=== PATIENT | female | born 1990 | race Caucasian/White ===

== ENCOUNTER 2016-12-11 02:46 | Emergency (ER) | payer OTHER ==
[~2016-12-11] VITALS: Ht 167.6 cm; Wt 51.7 kg
[2016-12-11] MEDS ORDERED: KETOROLAC 30 MG/1 ML IVPush ONE (03:30)
[2016-12-11] MEDS ORDERED: MORPHINE SULFATE 4 MG/ML, 1ML IVPush PRN (03:30)
[2016-12-11] MEDS ORDERED: SODIUM CHLORIDE 0.9% 1,000ML IVBOLUS ONE (03:30)
[2016-12-11] MEDS ORDERED: PROCHLORPERAZINE 5 MG/ML, 2ML IVPush ONE (03:30)
[2016-12-11] MEDS ORDERED: DIPHENHYDRAMINE 50 MG/ML, 1ML IVPush ONE (03:30)
[2016-12-11] MEDS ORDERED: SODIUM CHLORIDE FLUSH 10ML SYR IVF ONE (03:30)
[2016-12-11] MEDS ORDERED: PROCHLORPERAZINE 5 MG/ML, 2ML ONE (03:35)
[2016-12-11] MEDS ORDERED: KETOROLAC 30 MG/1 ML ONE (03:35)
[2016-12-11] MEDS ORDERED: DIPHENHYDRAMINE 50 MG/ML, 1ML ONE (03:35)
[2016-12-11 04:55] VITALS: BP 104/53
== END 2016-12-11 05:14 | disposition home or self-care (01) ==
LOC: ED 04:56
DX: G43.019 Migraine without aura, intractable, without status migrainosus (principal); F17.200 Nicotine dependence, unspecified, uncomplicated
CPT/HCPCS: 96361; 96374; 96375; 99284; J0780; J1200; J1885; J7030

== ENCOUNTER 2017-01-11 15:21 | Emergency (ER) | payer OTHER ==
[~2017-01-11] VITALS: Ht 167.6 cm; Wt 50.8 kg
[2017-01-11 16:33] LABS: BLOOD UREA NITROGEN 11 mg/dL (7-18)
[2017-01-11 16:33] LABS: HEMATOCRIT 46.6 % (34.6-47.8); HEMOGLOBIN 15.8 g/dL (11.7-16.4); WHITE BLOOD COUNT 19.1 x10^3/uL (3.4-10)
[2017-01-11] MEDS ORDERED: morphine SULFATE 10 MG/ML, 1ML ONE (17:45)
[2017-01-11] MEDS ORDERED: ONDANSETRON 2MG/ML, 2ML ONE (17:45)
[2017-01-11] MEDS ORDERED: morphine SULFATE 10 MG/ML, 1ML IVPush ONE ×2 (18:00→20:00)
[2017-01-11] MEDS ORDERED: ONDANSETRON 2MG/ML, 2ML IVPush ONE (18:00)
[2017-01-11] MEDS ORDERED: SODIUM CHLORIDE 0.9% 1,000ML IVBOLUS ONE (18:00)
[2017-01-11] MEDS ORDERED: CEFTRIAXONE PMX 1GM/50ML 50 ML IV ONE (18:30)
[2017-01-11] MEDS ORDERED: CEFTRIAXONE PMX 1GM/50ML 50 ML ONE (19:22)
[2017-01-11] MEDS ORDERED: MORPHINE SULFATE 4 MG/ML, 1ML ONE (20:02)
[2017-01-11 20:19] VITALS: BP 148/65
== END 2017-01-11 20:22 | disposition home or self-care (01) ==
LOC: ED 17:52
DX: N73.9 Female pelvic inflammatory disease, unspecified (principal); N30.01 Acute cystitis with hematuria; G43.909 Migraine, unspecified, not intractable, without status migrainosus
CPT/HCPCS: 36415; 80048; 81001; 82040; 84703; 85025; 87086; 87210; 87491; 87591; 87808; 96361; 96365; 96375; 96376; 99284; J0696; J2270; J2405; J7030

== ENCOUNTER 2017-02-06 13:58 | Emergency (ER) | payer OTHER ==
[~2017-02-06] VITALS: Ht 167.6 cm; Wt 51.0 kg
[2017-02-06] MEDS ORDERED: KETOROLAC 30 MG/1 ML IVPush ONE (15:00)
[2017-02-06] MEDS ORDERED: SODIUM CHLORIDE 0.9% 1,000ML IVBOLUS ONE (15:00)
[2017-02-06] MEDS ORDERED: METOCLOPRAMIDE 5 MG/ML, 2ML IVPush ONE (15:00)
[2017-02-06] MEDS ORDERED: METOCLOPRAMIDE 5 MG/ML, 2ML ONE (15:05)
[2017-02-06] MEDS ORDERED: KETOROLAC 30 MG/1 ML ONE (15:05)
[2017-02-06 16:17] VITALS: BP 105/71
== END 2017-02-06 16:19 | disposition home or self-care (01) ==
LOC: ED 14:34
DX: G43.909 Migraine, unspecified, not intractable, without status migrainosus (principal); F17.210 Nicotine dependence, cigarettes, uncomplicated
CPT/HCPCS: 96361; 96374; 96375; 99285; J1885; J2765; J7030

== ENCOUNTER 2017-04-17 12:38 | Emergency (ER) | payer OTHER ==
[~2017-04-17] VITALS: Ht 167.6 cm; Wt 51.1 kg
[2017-04-17 12:54] VITALS: BP 103/65
[2017-04-17] MEDS ORDERED: KETOROLAC 30 MG/1 ML ONE (13:25)
[2017-04-17] MEDS ORDERED: DEXAMETHASONE 4 MG/ML, 5ML ONE (13:25)
[2017-04-17] MEDS ORDERED: ACETAMINOPHEN 325 MG TABLET ONE (13:25)
[2017-04-17] MEDS ORDERED: PROCHLORPERAZINE 5 MG/ML, 2ML ONE (13:25)
[2017-04-17] MEDS ORDERED: SUMATRIPTAN 6MG/0.5ML SQ ONE ×2 (13:25→13:30)
[2017-04-17] MEDS ORDERED: SODIUM CHLORIDE 0.9% 1,000ML IVBOLUS ONE (13:30)
[2017-04-17] MEDS ORDERED: PROCHLORPERAZINE 5 MG/ML, 2ML IVPush ONE (13:30)
[2017-04-17] MEDS ORDERED: DEXAMETHASONE 4 MG/ML, 1ML IVPush ONE (13:30)
[2017-04-17] MEDS ORDERED: ACETAMINOPHEN 325 MG TABLET PO ONE (13:30)
[2017-04-17] MEDS ORDERED: hydrOXYzine 50 MG/ML IM ONE (13:30)
[2017-04-17] MEDS ORDERED: KETOROLAC 30 MG/1 ML IVPush ONE (13:30)
[2017-04-17] MEDS ORDERED: SODIUM CHLORIDE FLUSH 10ML SYR IVF ONE (13:30)
[2017-04-17] MEDS ORDERED: hydrOXYzine 25 MG/ML IM ONE (14:30)
== END 2017-04-17 15:21 | disposition home or self-care (01) ==
LOC: ED 13:27
DX: G43.001 Migraine without aura, not intractable, with status migrainosus (principal)
CPT/HCPCS: 96361; 96372; 96374; 96375; 99284; J0780; J1100; J1885; J3030; J7030

== ENCOUNTER 2018-02-22 05:35 | Emergency (ER) | payer OTHER ==
[~2018-02-22] VITALS: Ht 167.6 cm; Wt 48.0 kg
[2018-02-22] MEDS ORDERED: SODIUM CHLORIDE 0.9% 1,000ML IVBOLUS ONE (06:00)
[2018-02-22] MEDS ORDERED: KETOROLAC 30 MG/1 ML IVPush ONE (06:00)
[2018-02-22] MEDS ORDERED: PROCHLORPERAZINE 5 MG/ML, 2ML IVPush ONE (06:00)
[2018-02-22] MEDS ORDERED: PROCHLORPERAZINE 5 MG/ML, 2ML ONE (06:37)
[2018-02-22] MEDS ORDERED: KETOROLAC 30 MG/1 ML ONE (06:37)
[2018-02-22 06:39] LABS: BASOPHILS # (AUTO) 0.06 x10^3/uL (0-0.1); BASOPHILS % (AUTO) 0 % (0-1); EOSINOPHILS # (AUTO) 0.21 x10^3/uL (0-0.4); EOSINOPHILS % (AUTO) 2 % (1-7); LYMPHOCYTES # (AUTO) 1.46 x10^3/uL (1-3.4); LYMPHOCYTES % (AUTO) 11 % (22-44); MD NO; MEAN CORPUSCULAR HEMOGLOBIN 33.1 pg (27.0-34.8); MEAN CORPUSCULAR HGB CONC 33.8 g/dL (32.4-35.8); MEAN CORPUSCULAR VOLUME 97.8 fL (80-100); MEAN PLATELET VOLUME 8.3 fL (7.4-10.4); MONOCYTES # (AUTO) 0.43 x10^3/uL (0.2-0.8); MONOCYTES % (AUTO) 3 % (2-9); NEUTROPHILS # (AUTO) 11.72 x10^3/uL (1.8-6.8); NEUTROPHILS % (AUTO) 85 % (42-75); PLATELET COUNT 251 x10^3/uL (130-400); RED BLOOD COUNT 4.27 x10^6/uL (3.82-5.3); RED CELL DISTRIBUTION WIDTH 13.3 % (9.6-15.2)
[2018-02-22 06:49] VITALS: BP 137/81
[2018-02-22 06:51] LABS: ANION GAP 7 mmol/L (5-15); CALCIUM 8.4 mg/dL (8.5-10.1); CHLORIDE 109 mmol/L (98-107); CREATININE 0.71 mg/dL (0.55-1.02)
[2018-02-22] MEDS ORDERED: LORazepam 2 MG/ML, 1ML ONE (07:26)
[2018-02-22] MEDS ORDERED: LORazepam 2 MG/ML, 1ML IVPush ONE (07:30)
== END 2018-02-22 08:04 | disposition home or self-care (01) ==
LOC: ED 08:02
DX: G89.29 Other chronic pain (principal); M54.2 Cervicalgia; R11.2 Nausea with vomiting, unspecified; E86.0 Dehydration; G43.909 Migraine, unspecified, not intractable, without status migrainosus; F17.200 Nicotine dependence, unspecified, uncomplicated
CPT/HCPCS: 36415; 80048; 85025; 96361; 96374; 96375; 99285; J0780; J1885; J2060; J7030

== ENCOUNTER 2019-01-03 08:19 | Inpatient (IN) | payer BC, MEDICAID ==
[~2019-01-03] VITALS: Ht 167.6 cm; Wt 61.0 kg
[2019-01-03] MEDS ORDERED: NEWBORN KIT ONE (22:00)
[2019-01-03] MEDS ORDERED: MISOPROSTOL 25 MCG TABLET ONE (22:05)
[2019-01-03] MEDS ORDERED: LIDOCAINE 1%, 20ML ONE (22:05)
[2019-01-03] MEDS ORDERED: MISOPROSTOL 200 MCG TABLET ONE (22:06)
[2019-01-03] MEDS ORDERED: OXYTOCIN 30U/ 0.9% NaCL 500ML 500 ML ONE (22:06)
[2019-01-03] MEDS ORDERED: OXYTOCIN 30U/ 0.9% NaCL 500ML 500 ML IV ONE (22:08)
[2019-01-03] MEDS: D5%-LACTATED RINGERS 1,000 ML IV SCH (22:08)
[2019-01-03 22:10] VITALS: BP 113/71
[2019-01-03] MEDS ORDERED: SODIUM CITRATE/CITRIC ACID 30 ML UDC PO PRN (22:30)
[2019-01-03] MEDS ORDERED: METOCLOPRAMIDE 5 MG/ML, 2ML IVPush PRN (22:30)
[2019-01-03] MEDS ORDERED: ONDANSETRON 2MG/ML, 2ML IVPush PRN (22:30)
[2019-01-03] MEDS ORDERED: CALCIUM CARBONATE 500 MG TAB.CHEW PO PRN (22:30)
[2019-01-03] MEDS ORDERED: TERBUTALINE 1 MG/ML, 1ML SQ PRN (22:30)
[2019-01-03] MEDS ORDERED: MISOPROSTOL 25 MCG TABLET VG PRN (22:30)
[2019-01-03] MEDS ORDERED: FENTANYL PF 100 MCG/2ML IV PRN (22:30)
[2019-01-03] MEDS ORDERED: TERBUTALINE 1 MG/ML, 1ML IVPush PRN (22:30)
[2019-01-03 22:39] LABS: BASOPHILS # (AUTO) 0.06 x10^3/uL (0-0.1); BASOPHILS % (AUTO) 1 % (0-1); EOSINOPHILS # (AUTO) 0.24 x10^3/uL (0-0.4); EOSINOPHILS % (AUTO) 2 % (1-7); LYMPHOCYTES % (AUTO) 18 % (22-44); MD NO; MEAN CORPUSCULAR HEMOGLOBIN 32.9 pg (27.0-34.8); MEAN CORPUSCULAR HGB CONC 33.2 g/dL (32.4-35.8); MEAN CORPUSCULAR VOLUME 99.2 fL (80-100); MONOCYTES # (AUTO) 0.78 x10^3/uL (0.2-0.8); MONOCYTES % (AUTO) 6 % (2-9); NEUTROPHILS # (AUTO) 9.69 x10^3/uL (1.8-6.8); NEUTROPHILS % (AUTO) 74 % (42-75); PLATELET COUNT 248 x10^3/uL (130-400); RED CELL DISTRIBUTION WIDTH 13.2 % (9.6-15.2)
[2019-01-04] MEDS ORDERED: FENTANYL/BUPIV./NS/PF 250 ML EPIDCONT SCH (03:05)
[2019-01-04] MEDS ORDERED: FENTANYL PF 500 MCG, BUPIVACAINE/PF 0.5%, 30ML 62.5 ML in SODIUM CHLORIDE 0.9% 177.5 ML EPIDCONT SCH (03:30)
[2019-01-04] MEDS: LACTATED RINGERS 1,000 ML IV SCH ×4 (03:31→22:08)
[2019-01-04] MEDS ORDERED: FENTANYL PF 100 MCG/2ML ONE ×2 (16:06→19:46)
[2019-01-04] MEDS: FENTANYL PF 100 MCG/2ML IVPush PRN ×2 (17:12→19:50)
[2019-01-04] MEDS ORDERED: BUPIVACAINE 0.25% ONE ×2 (20:17→20:25)
[2019-01-04] MEDS ORDERED: FENTANYL/BUPIV./NS/PF 250 ML EPIDCONT ONE (20:25)
[2019-01-05] MEDS: D5%-LACTATED RINGERS 1,000 ML IV SCH (00:50)
[2019-01-05] MEDS ORDERED: OXYTOCIN 30U/ 0.9% NaCL 500ML 500 ML IV SCH (03:22)
[2019-01-05] MEDS ORDERED: ACETAMINOPHEN 325 MG TABLET PO PRN ×2 (03:30)
[2019-01-05] MEDS ORDERED: CALCIUM CARBONATE 500 MG TAB.CHEW PO PRN (03:30)
[2019-01-05] MEDS ORDERED: MISOPROSTOL 200 MCG TABLET PR PRN (03:30)
[2019-01-05] MEDS ORDERED: ONDANSETRON 2MG/ML, 2ML IV PRN (03:30)
[2019-01-05] MEDS ORDERED: BISACODYL 10 MG SUPP PR PRN (03:30)
[2019-01-05] MEDS ORDERED: SIMETHICONE 80 MG CHEW TAB PO PRN (03:30)
[2019-01-05] MEDS ORDERED: OXYTOCIN 30U/ 0.9% NaCL 500ML 500 ML ONE (04:10)
[2019-01-05] MEDS: OXYTOCIN 30U/ 0.9% NaCL 500ML 500 ML IV SCH ×3 (04:13→23:22)
[2019-01-05] MEDS ORDERED: IBUPROFEN 600 MG TABLET ONE (04:22)
[2019-01-05] MEDS: IBUPROFEN 600 MG TABLET PO PRN ×4 (04:24→23:57)
[2019-01-05] MEDS: LACTATED RINGERS 1,000 ML IV SCH ×3 (06:08→22:08)
[2019-01-05 07:45] VITALS: BP 125/81
[2019-01-05] MEDS: PRENATAL VIT/IRON/FA 1 EACH TABLET PO SCH (09:32)
[2019-01-05] MEDS: DOCUSATE 100 MG CAPSULE PO PRN ×2 (09:32→23:57)
[2019-01-05] MEDS: HYDROcodone/APAP 5/325 TABLET PO PRN ×4 (09:34→23:57)
[2019-01-05 11:10] LABS: MEAN CORPUSCULAR HEMOGLOBIN 32.8 pg (27.0-34.8); MEAN CORPUSCULAR HGB CONC 32.9 g/dL (32.4-35.8); MEAN CORPUSCULAR VOLUME 99.9 fL (80-100); MEAN PLATELET VOLUME 8.9 fL (7.4-10.4); PLATELET COUNT 226 x10^3/uL (130-400); RED BLOOD COUNT 4.12 x10^6/uL (3.82-5.3); RED CELL DISTRIBUTION WIDTH 13.4 % (9.6-15.2)
[2019-01-05 11:49] LABS: MD YES
[2019-01-05 12:30] LABS: BAND#(MANUAL) 0.42 x10^3/uL; BANDS%(MANUAL) 2 % (0-7); BASOS#(MANUAL) 0.21 x10^3/uL (0-0.1); BASOS% (MANUAL) 1 % (0-1); EOS#(MANUAL) 0.21 x10^3/uL (0.0-0.4); EOS% (MANUAL) 1 % (1-7); LYMPH#(MANUAL) 2.08 x10^3/uL (1-3.4); LYMPHS% (MANUAL) 10 % (22-44); MONOS#(MANUAL) 1.46 x10^3/uL (0.3-2.7); MONOS% (MANUAL) 7 % (2-9); REACTIVE LYMPHS # (MANUAL) 0.21 x10^3/uL (0-0); REACTIVE LYMPHS % (MANUAL) 1 % (0-0); SEG#(MANUAL) 16.22 x10^3/uL (1.8-6.8); SEGS% (MANUAL) 78 % (42-75)
[2019-01-05 12:31] LABS: <PLATELET ESTIMATE> ADEQUATE; <PLT MORPHOLOGY> NORMAL PLT MORPH; <RBC MORPHOLOGY> NORMAL
[2019-01-05 13:00] VITALS: BP 130/81
[2019-01-05 21:30] VITALS: BP 117/73
[2019-01-06 00:10] VITALS: BP 113/73
[2019-01-06] MEDS: LACTATED RINGERS 1,000 ML IV SCH ×2 (06:08→14:08)
[2019-01-06] MEDS: PRENATAL VIT/IRON/FA 1 EACH TABLET PO SCH (07:19)
[2019-01-06] MEDS: DOCUSATE 100 MG CAPSULE PO PRN (07:19)
[2019-01-06] MEDS: IBUPROFEN 600 MG TABLET PO PRN ×2 (07:19→13:41)
[2019-01-06 07:20] VITALS: BP 118/77
[2019-01-06] MEDS: HYDROcodone/APAP 5/325 TABLET PO PRN ×2 (07:20→13:41)
[2019-01-06] MEDS: OXYTOCIN 30U/ 0.9% NaCL 500ML 500 ML IV SCH (09:22)
[2019-01-06] MEDS ORDERED: IBUP-1222 PO (17:07)
[2019-01-06] MEDS ORDERED: HYDR-3240 PO (17:07)
== END 2019-01-06 18:21 | disposition home or self-care (01) | DRG 806 ==
LOC: LDIP 21:16 → 2NE 01-05 05:42 → 2NW 01-05 07:27
PROVIDERS: ADMIT Student in an Organized Health Care Education/Training Program; ATTEND Student in an Organized Health Care Education/Training Program
PROC: 10E0XZZ Delivery of Products of Conception, External Approach (ICD-10-PCS; principal; 2019-01-05)
PROC: 0U7C7ZZ Dilation of Cervix, Via Natural or Artificial Opening (ICD-10-PCS; 2019-01-05)
PROC: 0UQMXZZ Repair Vulva, External Approach (ICD-10-PCS; 2019-01-05)
PROC: 3E0R3BZ Introduction of Anesthetic Agent into Spinal Canal, Percutaneous Approach (ICD-10-PCS; 2019-01-05)
PROC: 00HU33Z Insertion of Infusion Device into Spinal Canal, Percutaneous Approach (ICD-10-PCS; 2019-01-05)
DX: O99.344 Other mental disorders complicating childbirth (principal); O99.354 Diseases of the nervous system complicating childbirth; Z37.0 Single live birth; Z3A.39 39 weeks gestation of pregnancy; Z82.3 Family history of stroke; F32.9 Major depressive disorder, single episode, unspecified; F41.9 Anxiety disorder, unspecified; Z83.3 Family history of diabetes mellitus; O71.89 Other specified obstetric trauma
CPT/HCPCS: 36415; J7121; S0020; 85025; 86850; 86870; 86900; 86922; 86923; G0378; J3010; J3490; J2590; J7050; J7120

== ENCOUNTER 2019-06-23 18:40 | Emergency (ER) | payer MEDICAID ==
[~2019-06-23] VITALS: Ht 167.6 cm; Wt 50.9 kg
[~2019-06-23 18:40] MED LIST: HYDR-3240 PO; IBUP-1222 PO
[2019-06-23 19:01] VITALS: BP 101/80
[2019-06-23] MEDS ORDERED: BIRTH CONTROL PILL PO (20:16)
--- NOTE | 2019-06-23 20:17 | NUR ---
THIS IS A 28 YO FEMALE COMING IN FOR NUMBNESS/TINGLING AND DISCOLORATION IN RIGHT ARM STARTING 3-4 DAYS AGO. PATIENT DENIES ANY PAIN, DENIES TRAUMA OR ANY SPECIFIC EVENT LEADING TO CAUSING THIS FEELING, STATED MILD TENDERNESS WHEN PALPATING. EQUAL STRENGTH BILATERALLY IN BOTH ARMS, CSM IN TACT AND EQUAL BILATERALLY. DISCOLORATION NOTED IN ANTERIOR ASPECT OF ARM AND TRICEP AREA, COLOR APPEARS TO BE PALE AND ASHEN. VSS IN TRIAGE, INSTRUCTED TO CHANGE IN TO GOWN.
--- NOTE | 2019-06-23 21:29 | NUR ---
Patient/Caregiver given discharge instructions and they have confirmed that they understand the instructions. Patient ambulatory with steady gait.
== END 2019-06-23 21:35 | disposition home or self-care (01) ==
LOC: ED 20:35
DX: M25.511 Pain in right shoulder (principal); R20.2 Paresthesia of skin; R94.31 Abnormal electrocardiogram [ECG] [EKG]
CPT/HCPCS: 93005; 99284

== ENCOUNTER 2019-12-17 21:59 | Emergency (ER) | payer BC, MEDICAID ==
[~2019-12-17] VITALS: Ht 167.6 cm; Wt 47.7 kg
[~2019-12-17 21:59] MED LIST changes: +BIRTH CONTROL PILL PO
[2019-12-17] MEDS ORDERED: ONDANSETRON ODT 4 MG PO ONE (22:30)
[2019-12-17] MEDS ORDERED: ESCI10TA10 PO (22:32)
--- NOTE | 2019-12-17 22:34 | NUR ---
pt came into ed today due to hotflashes and nausea/vomitting. pt hot flashes began around 1600 and shortly after began throwing up. pt resting on gurney, states she has been able to keep down a little bit of water but it throwing up every 15-20 minutes. pt denies abdominal pain, states she has a slight headache and is dizzy when moving around a lot. pulses are 2+, gross neuro intact, pupils are dilated. pt mentions she "passed out a few times" but didnt fall because she could feel it coming on and sat down. took test at home and test was negative. pt placed on spo2/bp monitoring. juan miguel bertrand. drea.
[2019-12-17] MEDS ORDERED: SODIUM CHLORIDE 0.9% 1,000ML IVBOLUS ONE (23:00)
[2019-12-17] MEDS ORDERED: ONDANSETRON 2MG/ML, 2ML IVPush ONE (23:00)
[2019-12-17] MEDS ORDERED: SODIUM CHLORIDE FLUSH 10ML SYR IVF ONE (23:00)
[2019-12-17] MEDS ORDERED: ONDANSETRON 2MG/ML, 2ML ONE (23:08)
--- NOTE | 2019-12-17 23:39 | NUR ---
PT MEDICATED PER JUN, NAD, NO CHANGE IN CONDITION, WAITING FOR LAB RESULTS. WCTM.
[2019-12-17 23:47] LABS: BASOPHILS # (AUTO) 0.09 x10^3/uL (0-0.1); BASOPHILS % (AUTO) 1 % (0-1); EOSINOPHILS # (AUTO) 0.15 x10^3/uL (0-0.4); EOSINOPHILS % (AUTO) 2 % (1-7); LYMPHOCYTES # (AUTO) 1.26 x10^3/uL (1-3.4); LYMPHOCYTES % (AUTO) 14 % (22-44); MD NO; MEAN CORPUSCULAR HEMOGLOBIN 32.5 pg (27.0-34.8); MEAN CORPUSCULAR VOLUME 98.6 fL (80-100); MEAN PLATELET VOLUME 8.6 fL (7.4-10.4); MONOCYTES # (AUTO) 0.37 x10^3/uL (0.2-0.8); MONOCYTES % (AUTO) 4 % (2-9); NEUTROPHILS % (AUTO) 80 % (42-75); PLATELET COUNT 213 x10^3/uL (130-400); RED BLOOD COUNT 4.29 x10^6/uL (3.82-5.3); RED CELL DISTRIBUTION WIDTH 12.6 % (9.6-15.2)
[2019-12-18] LABS: ALANINE AMINOTRANSFERASE 19 U/L (12-78); ANION GAP 6 mmol/L (5-15); CHLORIDE 111 mmol/L (98-107)
--- NOTE | 2019-12-18 | NUR ---
late entry: rn called lab to inquire about urine. pt apears more comfortable. wctm
[2019-12-18 00:05] LABS: ALKALINE PHOSPHATASE 68 U/L (45-117); BILIRUBIN,TOTAL 0.3 mg/dL (0.2-1.0)
[2019-12-18] MEDS ORDERED: CYCLOBENZAPRINE 10 MG TABLET PO STA (00:11)
[2019-12-18] MEDS ORDERED: CYCLOBENZAPRINE 10 MG TABLET ONE (00:14)
[2019-12-18] MEDS ORDERED: IBUPROFEN 600 MG TABLET ONE (00:15)
[2019-12-18 00:17] VITALS: BP 111/72
[2019-12-18 00:29] LABS: MICROSCOPIC INDICATED
[2019-12-18] MEDS ORDERED: IBUPROFEN 200 MG TABLET PO ONE (00:30)
[2019-12-18] MEDS ORDERED: IBUPROFEN 600 MG TABLET PO ONE (00:30)
--- NOTE | 2019-12-18 01:10 | NUR ---
Patient given discharge instructions and they have confirmed that they understand the instructions. Patient ambulatory with steady gait. denies additional needs at this time, questions answers appropriately. NAD, VSS. no belongings left in room at [facility].
== END 2019-12-18 01:15 | disposition home or self-care (01) ==
LOC: ED 22:29
DX: G44.209 Tension-type headache, unspecified, not intractable (principal); R11.2 Nausea with vomiting, unspecified; R94.31 Abnormal electrocardiogram [ECG] [EKG]
CPT/HCPCS: 36415; 80053; 81001; 83690; 84703; 85025; 87086; 93005; 96374; 99284; J2405; J7030; Q0162

== ENCOUNTER 2020-02-07 10:59 | Emergency (ER) | payer BC ==
[~2020-02-07] VITALS: Ht 167.6 cm; Wt 47.0 kg
[~2020-02-07 10:59] MED LIST changes: +ESCI10TA10 PO
--- NOTE | 2020-02-07 11:16 | NUR ---
Pt gas approx 2" lac to left wrist/lower arm. No bleeding at this time.
[2020-02-07] MEDS ORDERED: LIDOCAINE-MPF 1%, 5ML ONE ×2 (11:22→11:48)
--- NOTE | 2020-02-07 11:28 | NUR ---
Set up for sutures
[2020-02-07] MEDS ORDERED: LIDOCAINE-MPF 1%, 5ML INFIL ONE (11:30)
[2020-02-07] MEDS ORDERED: DIPH,PERTUSS(ACELL),TET VAC/PF 0.5 ML IM-VACC ONE ×2 (11:30→12:11)
--- NOTE | 2020-02-07 11:54 | NUR ---
PA at bedside for lac repair
[2020-02-07 12:34] VITALS: BP 121/74
== END 2020-02-07 12:36 | disposition home or self-care (01) ==
LOC: ED 12:03
DX: S61.512A Laceration without foreign body of left wrist, initial encounter (principal); W23.1XXA Caught, crushed, jammed, or pinched between stationary objects, initial encounter; Y93.89 Activity, other specified; Y92.098 Other place in other non-institutional residence as the place of occurrence of the external cause; Y99.8 Other external cause status
CPT/HCPCS: 12002; 90471; 90715; 99283

== ENCOUNTER 2020-02-13 14:18 | Emergency (ER) | payer BC ==
[~2020-02-13] VITALS: Ht 167.6 cm; Wt 45.5 kg
[2020-02-13] MEDS ORDERED: LIDOCAINE 2%, 20ML SQ ONE (15:00)
[2020-02-13] MEDS ORDERED: L.E.T SOLUTION TP ONE ×3 (15:00→15:37)
[2020-02-13] MEDS ORDERED: ONDANSETRON ODT 4 MG PO ONE (15:00)
[2020-02-13] MEDS ORDERED: OXYcodone/APAP 10/325MG TABLET PO ONE (15:00)
[2020-02-13] MEDS ORDERED: ONDANSETRON ODT 4 MG ONE (15:28)
[2020-02-13] MEDS ORDERED: LIDOCAINE-MPF 1%, 5ML ONE (15:28)
[2020-02-13] MEDS ORDERED: OXYcodone/APAP 10/325MG TABLET ONE (15:29)
[2020-02-13 17:19] VITALS: BP 127/87
== END 2020-02-13 17:21 | disposition home or self-care (01) ==
LOC: ED 14:57
DX: S81.012A Laceration without foreign body, left knee, initial encounter (principal); S40.212A Abrasion of left shoulder, initial encounter; R07.9 Chest pain, unspecified; V89.2XXA Person injured in unspecified motor-vehicle accident, traffic, initial encounter; Y93.55 Activity, bike riding; Y92.488 Other paved roadways as the place of occurrence of the external cause; Y99.8 Other external cause status
CPT/HCPCS: 12001; 12031; 71046; 73564; 99284; Q0162; 12002